=== PATIENT | female | born 1945 | race Caucasian/White ===

== ENCOUNTER → 2017-01-20 09:31 | Outpatient (CLI) | payer MEDICARE, OTHER ==
[2016-05-30 09:43] VITALS: BMI 22.9
[~2017-01-20 09:31] MED LIST: ACETAMINOPHEN325 MG PO; ALEVE220 MG; DUREZOL5 ML EACH EYE; TESSALON PERLE100 MG PO; TRIMETHOPRIM100 MG PO; VIBRAMYCIN 100100 MG PO; ZOLOFT100 MG PO
== END | disposition home or self-care (01) ==
LOC: D.US 09:30
DX: I71.4 Abdominal aortic aneurysm, without rupture (principal)

== ENCOUNTER → 2017-04-03 12:30 | Outpatient (CLI) | payer MEDICARE, OTHER ==
[2016-05-30 09:43] VITALS: BMI 22.9
== END | disposition home or self-care (01) ==
LOC: D.US 12:30
DX: I65.23 Occlusion and stenosis of bilateral carotid arteries (principal)

== ENCOUNTER → 2017-05-07 10:34 | Outpatient (CLI) | payer MEDICARE, OTHER ==
[2016-05-30 09:43] VITALS: BMI 22.9
== END | disposition home or self-care (01) ==
LOC: D.US 10:34
DX: N39.0 Urinary tract infection, site not specified (principal)

== ENCOUNTER → 2017-08-04 16:52 | Outpatient (CLI) | payer MEDICARE, OTHER ==
[2016-05-30 09:43] VITALS: BMI 22.9
[2017-08-04 18:06] LABS: BASOPHILS 0.8 % (0-2); EOSINOPHILS 1.7 % (0-7); HEMATOCRIT 39.3 % (36.0-48.0); IMMATURE GRANULOCYTES 0.1 % (0-5); LYMPHOCYTES 34.7 % (15-50); MCHC 33.1 g/dL (31.0-37.0); MCV 90.6 fL (80.0-100.0); MEAN PLATELET VOLUME 10.9 fL (7.4-10.4); MONOCYTES 8.5 % (2-11); NEUTROPHILS 54.2 % (40-80); PLATELET COUNT 285 10x3/uL (130-400); RBC 4.34 10x6/uL (4.00-5.40); RDW 14.3 % (11.5-14.5)
[2017-08-04 18:44] LABS: ERYTHROCYTE SEDIMENTATION RATE 11 mm/hr (0-30)
[2017-08-06 10:17] LABS: ANA REFLEX - ANTICHROMATIN ABS <0.2 AI (0.0-0.9); ANA REFLEX - CENTROMERE B ABS <0.2 AI (0.0-0.9); ANA REFLEX - DBL STRANDED DNA 1 IU/mL (0-9); ANA REFLEX - DIRECT Positive (Negative); ANA REFLEX - JO-1 AB <0.2 AI (0.0-0.9); ANA REFLEX - RNP ANTIBODIES 1.6 AI (0.0-0.9); ANA REFLEX - SCL-70 <0.2 AI (0.0-0.9); ANA REFLEX - SJOGRENS AB SSA <0.2 AI (0.0-0.9); ANA REFLEX - SJOGRENS AB SSB <0.2 AI (0.0-0.9); ANA REFLEX - SMITH AB <0.2 AI (0.0-0.9)
[2017-08-07 03:10] LABS: ANGIOTENSIN CONVERTING ENZYME 16 U/L (14-82)
[2017-08-07 14:23] LABS: ANCA - ANTIMYELOPEROXIDASE <9.0 U/mL (0.0-9.0); ANCA - ANTIPROTEINASE 3 <3.5 U/mL (0.0-3.5); ANCA - ATYPICAL <1:20 titer (Neg:<1:20); ANCA - CYTOPLASMIC <1:20 titer (Neg:<1:20); ANCA - PERINUCLEAR <1:20 titer (Neg:<1:20)
[2017-08-11 10:11] LABS: HLA B27 Negative (())
== END | disposition home or self-care (01) ==
LOC: D.LAB 16:52
PROVIDERS: Ophthalmology
DX: H20.10 Chronic iridocyclitis, unspecified eye (principal)

== ENCOUNTER → 2017-09-24 10:12 | Outpatient (CLI) | payer MEDICARE, OTHER ==
[2016-05-30 09:43] VITALS: BMI 22.9
[2017-09-24 12:02] LABS: CREATININE - SERUM 1.2 mg/dL (0.6-1.3)
== END | disposition home or self-care (01) ==
LOC: D.CT 10:00
PROVIDERS: Internal Medicine Cardiovascular Disease
DX: I71.4 Abdominal aortic aneurysm, without rupture (principal)